=== PATIENT | female | born 1950 | race African-American/Black ===

== ENCOUNTER 2017-04-17 18:43 | Emergency (ER) | payer BC ==
[~2017-04-17] VITALS: Ht 154.9 cm; Wt 49.6 kg
[2017-04-17 18:49] VITALS: Ht 154.9 cm; Wt 49.6 kg
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
== END 2017-04-17 22:37 | disposition left against medical advice (07) ==
LOC: FTE 18:43
DX: M25.511 Pain in right shoulder (principal); M54.2 Cervicalgia; M25.561 Pain in right knee; E03.9 Hypothyroidism, unspecified
CPT/HCPCS: 99282